=== PATIENT | male | born 1945 | race Caucasian/White ===

== ENCOUNTER 2022-07-27 08:11 | Emergency (ER) | payer OTHER ==
[2022-07-27 13:04] VITALS: BP 136/57; PULSE 84
== END 2022-07-27 14:17 | disposition home or self-care (01) ==
LOC: JP.ED 08:11
DX: D69.6 Thrombocytopenia, unspecified (principal); D70.9 Neutropenia, unspecified; D64.9 Anemia, unspecified; C85.90 Non-Hodgkin lymphoma, unspecified, unspecified site; E11.9 Type 2 diabetes mellitus without complications; Z91.040 Latex allergy status
CPT/HCPCS: 36415; 36430; 85025; 86850; 86900; 86901; 86920; 86922; 99283; J1642; P9016

== ENCOUNTER 2022-08-16 18:55 | Emergency (ER) | payer OTHER ==
[2022-08-16 20:18] LABS: ESTIMATED GFR 91 mL/min (>60)
[2022-08-16] MEDS ORDERED: Potassium Chloride 10 MEQ in Premix Bag 1 BAG IV ONE ×2 (20:21→21:52)
[2022-08-16] MEDS ORDERED: Sodium Chloride 0.9% 10 ML Syringe FLUSH PRN (20:21)
[2022-08-16] MEDS ORDERED: Sodium Chloride 0.9% 500 ML IV ONE (20:42)
[2022-08-16 22:05] VITALS: BP 140/98; PULSE 100
== END 2022-08-16 22:45 ==
LOC: JP.ED 18:55
DX: D61.810 Antineoplastic chemotherapy induced pancytopenia (principal); T45.1X5A Adverse effect of antineoplastic and immunosuppressive drugs, initial encounter; C83.00 Small cell B-cell lymphoma, unspecified site; I10 Essential (primary) hypertension; E11.9 Type 2 diabetes mellitus without complications; Z79.84 Long term (current) use of oral hypoglycemic drugs; Z91.040 Latex allergy status; Z20.822 Contact with and (suspected) exposure to COVID-19
CPT/HCPCS: 36415; 36430; 80053; 85025; 85610; 85730; 86850; 86900; 86901; 86920; 86922; 87635; 96365; 96366; 99284; J3480; J3490; J7040; P9016; U0002